=== PATIENT | female | born 1945 | race Caucasian/White ===

== ENCOUNTER → 2018-03-20 10:56 | Outpatient (CLI) | payer OTHER, SELFPAY ==
[2018-03-20 12:00] LABS: Add Manual Diff / Slide Review NO; Basophils Absolute Auto 100 /uL (0-100); Basophils Percent Auto 2.4 % (0-2); Eosinophils Absolute Auto 0 /uL (0-450); Eosinophils Percent Auto 1.5 % (2-4); Hematocrit 38.4 % (36-46); Lymphocytes Absolute Auto 700 /uL (1100-4500); Lymphocytes Percent Auto 23.3 % (25-40); Mean Corpuscular HGB Conc 33.9 % (30-36); Mean Corpuscular Hemoglobin 30.5 PG (26-34); Mean Corpuscular Volume 89.9 fL (80-100); Monocytes Absolute Auto 400 /uL (0-900); Monocytes Percent Auto 12.9 % (3-14); Neutrophils Absolute Auto 1900 /uL (1500-7000); Neutrophils Percent Auto 59.9 % (50-75); Platelet Count 129 X10^3/uL (150-400); Red Blood Cell Count 4.27 X10^6/uL (4.0-5.2); Red Cell Distribution Width 17.2 % (11.6-14.8); White Blood Cell Count 3.2 X10^3/uL (4.5-11.0)
[2018-03-20 12:15] LABS: BUN Creatinine Ratio 23.6 (6-22); Blood Urea Nitrogen 26 mg/dL (7-17); Calcium 9.4 mg/dL (8.4-10.2); Carbon Dioxide 31 mmol/L (22-32); Chloride 100 mmol/L (98-107); Cholesterol 113 mg/dL (140-199); Estimated Glomerular Filt Rate 48.4 mL/min (>60); Glucose 81 mg/dL (80-110); HDL Cholesterol 55 mg/dL (40-60); HEMOLYSIS < 15 (0-50); LDL Cholesterol Calculated 41 mg/dL (<100); Potassium 4.7 mmol/L (3.4-5.1); Sodium 138 mmol/L (137-145); Triglycerides 87 mg/dL (35-150)
== END ==
PROVIDERS: Family Provider Family Medicine; PCP Family Medicine; Visit Provider Internal Medicine Cardiovascular Disease
DX: C90.01 Multiple myeloma in remission (principal); Z00.00 Encounter for general adult medical examination without abnormal findings
CPT/HCPCS: 36415; 80048; 80061; 85025

== ENCOUNTER → 2018-04-15 12:46 | Outpatient (CLI) | payer OTHER, SELFPAY ==
--- NOTE | 2018-04-15 | DI.ECHO.S_ITS ---
[facility] +---------+ : : [address] : [place] : : : : [id number] : : : : Phone: [phone]+ Echocardiogram Report + + :Name: GIAN TRINIDAD Study Date: 04/15/2018 Height: 65 in : :[facility] Weight: 169 lb : : Gender: Female BSA: 1.8 m2 : :: 1945 Age: 73 yrs BP: 128/70 mmHg: :Reason For Study: Cardiomyopathy : :Ordering Physician: Shayy : :Jeana Chapin Performed By: Belinda Polo : :Referring: Manish Soliman : + + Interpretation Summary 1) Normal left ventricular thickness, size, wall motion, and systolic function (EF 60-65%). 2) Mildly enlarged right ventricle with borderline reduced function. 3) The left atrium is severely dilated. 4) No significant valvular abnormalities. 5) The right ventricular systolic pressure is estimated to be at least 35 mmHg based on an estimated right atrial pressure of 3 mm Hg. 6) Compared to the Echo done 07/07/2009, right ventricular enlargement and left atrial enlargement are new on this study. Procedure: A two-dimensional transthoracic echocardiogram with color flow and Doppler was performed. The study quality was technically adequate. Comparison is made with the echocardiogram of 07-07-09. The patient was in normal sinus rhythm during the exam. Left Ventricle: The left ventricle is normal in size, wall thickness, and systolic function without any focal wall motion abnormalities. The ejection fraction is estimated to be 60-65%. Right Ventricle: The right ventricle is mildly dilated. Right ventricular systolic function is borderline reduced. Atria: The left atrium is severely dilated. Right atrial size is normal. The interatrial septum is intact with no evidence for an atrial septal defect. Mitral Valve: The mitral valve is grossly normal. There is mild mitral regurgitation. Aortic Valve: The aortic valve opens well. There is no aortic valve stenosis. There is mild aortic regurgitation. Tricuspid Valve: The tricuspid valve leaflets are thin and pliable. There is mild tricuspid regurgitation. The right ventricular systolic pressure is estimated to be at least 35 mmHg based on an estimated right atrial pressure of 3 mm Hg. Pulmonic Valve: The pulmonic valve is not well seen, but is grossly normal. There is mild pulmonic regurgitation. Great Vessels: The aortic root is normal size. The ascending aorta is at the upper limits of normal in size. The IVC is of normal diameter and collapses greater than 50% with a sniff. This suggests a low right atrial pressure of 3 mm Hg. Pericardium/ Pleura There is no pericardial effusion. There is no pleural effusion. MMode/2D Measurements & Calculations LVIDd: 5.0 cm Ao root diam: 3.0 cm LVIDs: 3.5 cm Aortic Jxn: 2.6 cm FS: 30.8 % asc Aorta Diam: 3.5 cm EPSS: 0.63 cm Ao Arch Diam (Prox Trans): 2.6 cm IVSd: 1.2 cm LVPWd: 0.65 cm LV dawson. diameter/BSA (cm/m^2): 2.7 LV sys. diameter/BSA (cm/m^2): 1.9 LA dimension: 4.7 cm RA long axis: 5.6 cm LA A2 area: 28.1 cm2 RA area: 20.4 cm2 LA A4 area: 28.4 cm2 RA vol: 63.1 ml LA length (vol): 6.2 cm RA : 34.3 ml/m2 LA vol: 109.3 ml IVC diam: 1.0 cm LA vol index: 59.4 ml/m2 RVDd major: 6.5 cm RVD1 (basal): 4.8 cm RVD2 (mid): 4.5 cm Doppler Measurements & Calculations Ao V2 max: 132.6 cm/sec MV E max frank: 61.4 cm/sec Ao V2 mean: 86.6 cm/sec MV A max frank: 77.6 cm/sec Ao max P.0 mmHg MV E/A: 0.79 Ao mean P.5 mmHg Med Peak E' Frank: 5.9 cm/sec Ao V2 VTI: 35.5 cm E/E' med: 10.4 Lat Peak E' Frank: 9.2 cm/sec E/E' lat: 6.7 E/e' average: 8.6 MV dec time: 0.23 sec MV P1/2t: 68.9 msec TR max frank: 283.1 cm/sec MV P1/2t max frank: 61.0 cm/sec TR max P.1 mmHg MVA(P1/2t): 3.2 cm2 PA V2 max: 84.7 cm/sec PA V2 mean: 56.9 cm/sec PA mean P.5 mmHg PA Accel Time: 0.22 sec Reading Physician:03:24 PM
== END ==
PROVIDERS: Family Provider Family Medicine; PCP Family Medicine; Visit Provider Internal Medicine Cardiovascular Disease
DX: I08.3 Combined rheumatic disorders of mitral, aortic and tricuspid valves (principal); I42.9 Cardiomyopathy, unspecified
CPT/HCPCS: 93306

== ENCOUNTER → 2018-06-06 13:36 | Outpatient (CLI) | payer OTHER, SELFPAY ==
--- NOTE | 2018-06-06 14:53 | PM.TREADMILL ---
Cardiac Stress Test Report Referral & Results Date Patient Seen: 06/06/18 Requesting provider: Shayy Chapin Indication: Paroxysmal atrial fibrillation Rest ECG: Atrial fibrillation with rapid ventricular response and heart rate between 120 and 150 Procedure Note: After both written and verbal informed consent the patient had an IV started by the diagnostic imaging RN, and then was hooked up to the treadmill monitoring system. The Lexiscan material, and then the Cardiolite tracer, were administered sequentially. An additional 3 min was spent monitoring the patient while supine on the gurney. The patient had a normal response to all infused materials. Impression: Atrial fibrillation with rapid ventricular response as above. Patient did hold her metoprolol as directed by the hospital at time of scheduling, given lack of specific direction from Cardiology Please see perfusion imaging report for details regarding possible ischemia Please note: Actual ECG tracings can be found in the PACS system.
--- NOTE | 2018-06-10 07:52 | DI.NM.S_ITS ---
DATE OF SERVICE: PROCEDURE: Pharmaceutical 2-day nuclear stress test. PROTOCOL: Lexiscan 0.4 mg IV used as a stress agent. RADIOPHARMACEUTICALS: Resting Technetium-99 dose was 26.2 mCi, and the stress Technetium-99 was 25.2 mCi. SYMPTOMS: The patient in atrial fibrillation with RVR and feeling fatigued. ECG: Resting ECG shows atrial fibrillation with RVR. There were rate-related repolarization changes at rest. These repolarization changes worsened with Lexiscan. Of note, patient was off her metoprolol for 2 days prior to her stress test. PERFUSION IMAGES: There is a small fixed distal anterior wall mild defect that persists during prone imaging. However, I still suspect that this is a breast attenuation artifact based on review of raw images. Underlying prior non- transmural infarct cannot be excluded definitively. GATED IMAGES: Normal left ventricular size, wall motion, and systolic function (post-stress EF 65%). TID ratio is 0.65, normal. Lung to heart ratio is 0.28, normal. CONCLUSIONS: Low risk, probably normal study. No ischemia. 1. Probably normal perfusion images. There is a fixed distal anterior wall defect that is probably breast attenuation artifact, but underlying prior non- transmural infarct cannot be excluded definitively. 2. Normal left ventricular size, wall motion, and systolic function (post- stress EF 65%). 3. Resting ECG shows atrial fibrillation with rapid ventricular response (RVR) and rate-related repolarization changes. These changes worsened with Lexiscan, but this is not a diagnostic finding. 4. No angina during the study. 5. No prior nuclear stress test available for comparison. Monique Gonzalez - PB/fn/ts doc#: [id number]/job#: [id number] dd: 06/07/2018 12:51:00 dt: 06/08/2018 06:49:00 DICTATING MD/COPIES TO: Shayy Chapin MD COPIES MNE: SANJUANITA
== END ==
PROVIDERS: Family Provider Family Medicine; PCP Family Medicine; Visit Provider Internal Medicine Cardiovascular Disease
DX: I48.0 Paroxysmal atrial fibrillation (principal)
CPT/HCPCS: 78452; 93016; 93017; 93018; A9502; J2785

== ENCOUNTER → 2019-01-13 09:38 | Outpatient (CLI) | payer OTHER, SELFPAY ==
--- NOTE | 2019-01-13 | DI.NM.S_ITS ---
PROCEDURE: [place] FAB[facility] PERF SPECT R&S PHARM Rest and pharmacological stress myocardial perfusion SPECT with gated imaging and ejection fraction RADIOPHARMACEUTICAL: 24.4 mCi Tc-99m tetrafosmin IV at rest and 24.8 mCi Tc-99m tetrafosmin IV at peak effect of pharmacological stress. [id number] was performed. INDICATIONS: a-fib TECHNIQUE: Radiopharmaceutical was injected at peak stress test, and also at rest. SPECT images were obtained. SPECT myocardial perfusion images were displayed in short axis, horizontal long axis, and vertical long axis views. Gated images were reviewed using Scryer software. COMPARISON: [facility], [place], [place] [facility] PERF SPECT R&S PHARM, 06/06/2018, 14:25. CARDIAC STRESS: A pharmacologic stress test was performed under the supervision of an attending staff, using an infusion of Lexiscan. The test was started as [place] protocol but was changed to pharmacological stress test as patient could not continue to treadmill and heart rate response was not expected to achieve with low level of activity. Hemodynamic data: There is normal blood pressure and heart rate response to pharmacologic stress. Symptoms: The patient denied anginal chest pain. Aminophylline: Not given EKG: No diagnostic changes of ischemia; no ectopy. FINDINGS: Raw data: There is good myocardial uptake of radiotracer. No significant motion artifacts. Imxj-mj-gnjjg ratio is 0.36 (normal is less than 0.38 for tetrafosmin tracer). Left ventricle function: Gated images demonstrate normal left ventricular wall thickening. There is questionable hinge point at mid anterior wall with mild hypokinesis of the distal anterior wall. No other segmental wall motion abnormalities. No transient ischemic dilation; TID is 0.98 (normal less than 1.3). Left ventricle resting end diastolic volume is 95 mL. Left ventricle stress ejection fraction is 74% ; normal range is above 45%. Myocardial perfusion: There is a small to moderate size, mild to moderate perfusion defect in the mid-apical anterior wall which is present on rest, stress supine and stress prone images. This is concerning for scar although there is breast attenuation artifact over the same area as well. Otherwise normal distribution of activity in the right and left ventricular myocardium. No reversible perfusion defects. IMPRESSION: Questionable area in the anterior wall with fixed defect is similar to the prior study. No reversible defect. Dictated by: Jhon Del Real M.D. on 01/14/2019 at 20:06 Approved by: Jhon Del Real M.D. on 01/14/2019 at 20:14
== END ==
PROVIDERS: Family Provider Family Medicine; PCP Family Medicine; Visit Provider Internal Medicine Cardiovascular Disease
DX: I48.91 Unspecified atrial fibrillation (principal)
CPT/HCPCS: 78452; 93016; 93017; 93018; A9502; J2785

== ENCOUNTER → 2019-01-14 13:28 | Outpatient (CLI) | payer OTHER, SELFPAY ==
[2019-01-14 15:38] LABS: Add Manual Diff / Slide Review NO; Basophils Absolute Auto 0 /uL (0-100); Basophils Percent Auto 1.1 % (0-2); Eosinophils Absolute Auto 100 /uL (0-450); Eosinophils Percent Auto 1.7 % (2-4); Hematocrit 37.8 % (36-46); Hemoglobin 12.7 g/dL (12.0-16.0); Lymphocytes Absolute Auto 900 /uL (1100-4500); Lymphocytes Percent Auto 26.5 % (25-40); Mean Corpuscular HGB Conc 33.6 % (30-36); Mean Corpuscular Hemoglobin 31.1 PG (26-34); Mean Corpuscular Volume 92.4 fL (80-100); Monocytes Absolute Auto 500 /uL (0-900); Monocytes Percent Auto 13.8 % (3-14); Neutrophils Absolute Auto 1900 /uL (1500-7000); Neutrophils Percent Auto 56.9 % (50-75); Platelet Count 71 X10^3/uL (150-400); Red Cell Distribution Width 16.3 % (11.6-14.8); White Blood Cell Count 3.3 X10^3/uL (4.5-11.0)
[2019-01-14 15:54] LABS: BUN Creatinine Ratio 14.3 (6-22); Blood Urea Nitrogen 20 mg/dL (7-17); Calcium 8.6 mg/dL (8.4-10.2); Carbon Dioxide 27 mmol/L (22-32); Chloride 107 mmol/L (98-107); Estimated Glomerular Filt Rate 36.7 mL/min (>60); Glucose 83 mg/dL (80-110); HEMOLYSIS < 15 (0-50); Sodium 141 mmol/L (137-145)
== END ==
PROVIDERS: Family Provider Family Medicine; PCP Family Medicine; Visit Provider Internal Medicine Cardiovascular Disease
DX: Z79.01 Long term (current) use of anticoagulants (principal); I48.0 Paroxysmal atrial fibrillation
CPT/HCPCS: 36415; 80048; 85025